=== PATIENT | female | born 1945 | race Caucasian/White ===

== ENCOUNTER 2021-06-23 19:36 | Emergency (ER) | payer MEDICARE, SELFPAY ==
--- NOTE | ~2021-06-23 | XR_ITS ---
EXAMINATION: XR CHEST CLINICAL INFORMATION: Altered mental status COMPARISON: None TECHNIQUE: Frontal view of the chest was obtained. FINDINGS: The cardiomediastinal silhouette is normal. The lung parenchyma is normal. No areas of consolidation. No pleural effusions. There is diffuse osteopenia. There is degenerative disease of the bilateral shoulders. XR/XR chest 1V IMPRESSION: No acute disease.
--- NOTE | ~2021-06-23 | CT_ITS ---
EXAMINATION: CT HEAD WITHOUT CONTRAST CLINICAL INFORMATION: Altered mental status COMPARISON: None TECHNIQUE: Contiguous axial imaging was performed from the skull base to vertex without intravenous administration of contrast. This CT examination was performed using dose optimization techniques as appropriate, variously including the following: *Automated exposure control *Adjustment of mA and/or kV according to patient size (this includes techniques or standardized protocols for targeted exams where dose is matched to indication/reason for exam; i.e. extremities or head) *Use of iterative reconstruction technique DLP: 624 mGy-cm FINDINGS: There is no evidence of acute intracranial hemorrhage or territorial infarction. No abnormal mass effect or midline shift is seen. Lou to white matter differentiation is well preserved. No extra-axial fluid collections are identified. The ventricles are normal in size. Dystrophic calcifications involving the thalamus and basal ganglia bilaterally, right greater than left. Patchy chronic microvascular white matter ischemic changes. The osseous structures and soft tissues are normal. The mastoid air cells and visualized portions of the paranasal sinuses are well aerated. CT/CT head/brain wo con IMPRESSION: No acute intracranial pathology.
[2021-06-23 19:43] VITALS: BP 110/53; BP 146/87; PULSE 79; PULSE 90; RESP 16; TEMP 36.6; O2SAT 96; BMI 23.3
--- NOTE | 2021-06-23 19:51 | PC.NURSE ---
pt is alert and at baseline confuse be can state her name. pt is clam and cooperative. No sign of distress at this time.
--- NOTE | 2021-06-23 19:58 | ED.AMS ---
HPI - Altered Mental Status General Chief Complaint: General Medical Stated Complaint: ? Time Seen by Provider: 06/23/21 19:50 Source: EMS and RN notes reviewed Mode of arrival: EMS Limitations: no limitations History of Present Illness HPI narrative: Patient 76 years old with history of dementia, TIA, hypertension came from half-way as a nurse noticed that patient is more confused than usual baseline no fever no nausea no vomiting no diarrhea no abdominal pain when patient arrived she was at her baseline does not know why she is here Related Data Allergies Allergy/AdvReac Type Severity Reaction Status Date / Time No Known Allergies Allergy Verified 06/23/21 20:07 Review of Systems Review of Systems: Yes Unobtainable due to mental status PMFSH Past Medical History Medical History Dementia Social History Social History Advance Directives: No Advance Directives Information Provided: No Physical Exam Vital Signs: Vital Signs: Last Vital Signs Temp 97.4 F 06/23/21 23:20 Pulse 80 06/23/21 23:20 Resp 16 06/23/21 23:20 BP 93/72 06/23/21 23:20 Pulse Ox 99 06/23/21 23:20 Body Mass Index 23.3 Appearance: Alert. Oriented X2. No acute distress. Eyes: PERRLA, No Nystagmus no pallor or icterus ENT: Pharynx normal. Oral Mucosa moist Neck: Normal inspection. Neck supple. CVS: Normal heart rate and rhythm. Pulses normal. Respiratory: No respiratory distress. Equal air entry bilateral, no wheezing/rales/rhonchi Abdomen: Soft and nontender. Bowel sounds are present, no mass palpable, no CVA tenderness Skin: Skin warm and dry. Normal skin color. Normal skin turgor. Extremities: No lower extremity edema. No calf tenderness Neuro: Oriented X 2. Moving all 4 extremities equally No sensory deficit.No cerebellar signs , cranial nerves II-XII intact MDM - Altered Mental Status MDM Narrative Medical decision making narrative: Patient with acute confusion per half-way staff in the ER patient was at baseline lab workup was also at baseline will do CT head just to rule out acute pathology CT scan head is negative for any acute pathology patient is at baseline having food in the ER will discharge patient N home Lab Data Attestation: I reviewed the patient's lab results. Result diagrams: 06/23/21 20:22 06/23/21 20:22 Labs: Lab Results 06/23/21 06/23/21 06/23/21 Range/Units 20:22 20:22 20:58 WBC 7.6 (4.8-10.8) X10*3/uL RBC 3.98 L (4.20-5.50) X10*6/uL Hgb 11.8 L (12.0-16.0) g/dl Hct 36.1 L (37-47) % MCV 90.7 (80-98) fL MCH 29.6 (27.0-33.0) pg MCHC 32.7 (31.0-35.0) g/dl RDW 13.3 (11.0-16.0) % Plt Count 254 (160-400) X10*3/uL MPV 8.9 L (9.4-12.3) fL Immature Gran % (Auto) 0.4 (0.0-0.4) % Neut % (Auto) 69.9 (45-73) % Lymph % (Auto) 17.6 L (20-40) % Perkins % (Auto) 7.5 (2-11) % Eos % (Auto) 3.9 (0-4) % Baso % (Auto) 0.7 (0-2) % Lymph # (Auto) 1.3 (1.2-4.9) X10*3/uL Perkins # (Auto) 0.6 (0.1-1.2) X10*3/uL Eos # (Auto) 0.3 (0.0-0.4) X10*3/uL Baso # (Auto) 0.1 (0.0-0.2) X10*3/uL Abs Immat Gran (auto) 0.03 (0.00-0.03) X10*3/uL Absolute Neuts (auto) 5.3 (2.0-8.3) X10*3/uL Absolute Nucleated RBC 0.000 (0.0-0.012) X10*3/uL Nucleated RBC % (auto) 0.0 (0.0-0.2) /100WBC Sodium 140 (135-145) mmol/L Potassium 3.8 (3.3-5.1) mmol/L Chloride 107 (96-108) mmol/L Carbon Dioxide 24 (22-29) mmol/L Anion Gap 13 (12-20) BUN 21 H (9-16) mg/dL Creatinine 0.74 (0.5-1.4) mg/dL Estim Creat Clear Calc 51.9 Estimated GFR > 60 Random Glucose 159 H (60-115) mg/dL Calcium 8.9 (8.4-10.2) mg/dL Total Bilirubin 0.2 (0.0-1.0) mg/dL AST 18 (5-31) U/L ALT 14 (0-31) U/L Alkaline Phosphatase 148 H (39-117) U/L Total Protein 5.5 L (6.5-8.0) g/dL Albumin 3.6 (3.5-5.0) g/dL Urine Color YELLOW Urine Appearance CLEAR Urine pH 6.0 (5.0-8.0) Ur Specific [place] 1.020 (1.005-1.025) Urine Protein NEG (NEG-TRACE) MG/DL Urine Glucose (UA) NEG (NEG) MG/DL Urine Ketones NEG (NEG) MG/DL Urine Blood NEG (NEG) Urine Nitrite NEG (NEG) Ur Leukocyte Esterase NEG (NEG) Imaging Data CT scan - head: Attestation: I personally reviewed and interpreted this imaging study as follows: Radiologist's impression: [address] [place] [address] CT Scan Report Signed Patient: Jessica Jimenez MR#: [id number] : 1945 Acct:[id number] Age/Sex: 76 / F ADM Date: 06/23/21 Loc: .ED Attending Dr: Ordering Physician: Keshawn Ramsey MD Date of Service: 06/23/21 Procedure(s): CT head/brain wo con Accession Number(s): [id number] cc: Keshawn Ramsey MD~ EXAMINATION: CT HEAD WITHOUT CONTRAST CLINICAL INFORMATION: Altered mental status? COMPARISON: None TECHNIQUE: Contiguous axial imaging was performed from the skull base to vertex without intravenous administration of contrast. This CT examination was performed using dose optimization techniques as appropriate, variously including the following: *Automated exposure control *Adjustment of mA and/or kV according to patient size (this includes techniques or standardized protocols for targeted exams where dose is matched to indication/reason for exam; i.e. extremities or head) *Use of iterative reconstruction technique DLP: 624 mGy-cm FINDINGS: There is no evidence of acute intracranial hemorrhage or territorial infarction. No abnormal mass effect or midline shift is seen. Lou to white matter differentiation is well preserved. No extra-axial fluid collections are identified. The ventricles are normal in size. Dystrophic calcifications involving the thalamus and basal ganglia bilaterally, right greater than left. Patchy chronic microvascular white matter ischemic changes. The osseous structures and soft tissues are normal. The mastoid air cells and visualized portions of the paranasal sinuses are well aerated. ? CT/CT head/brain wo con IMPRESSION: No acute intracranial pathology. Discharge Plan Discharge Clinical Impression: Dementia Qualifiers: Dementia type: Alzheimer's Alzheimer's disease onset: late-onset Dementia behavioral disturbance: with behavioral disturbance Qualified Code(s): G30.1 - Alzheimer's disease with late onset Patient Disposition: Xfer SNF Transfer Details: Back to half-way Instructions: Dementia (ED) Additional Instructions: Continue patient's medications , CT scan head and labs are negative , no acute pathology follow-up with PCP
--- NOTE | 2021-06-23 20:04 | PC.NURSE ---
pt is alert and eliane to name. pt has dementia. Call Kirsten of [facility] to determine reason for sending resident here. Spoke to nurse Nathaly who stated DON said send her out due to mental status change but nurse was unable to report what those changes were this evening. Provider in to assess pt.
--- NOTE | 2021-06-23 20:09 | PC.NURSE ---
placed fall risk socks and wrist band
[2021-06-23 20:26] LABS: MANUAL DIFF FLAG NO
[2021-06-23 20:28] LABS: Basophils Absolute Auto 0.1 X10*3/uL (0.0-0.2); Basophils Percent Auto 0.7 % (0-2); Eosinophils Absolute Auto 0.3 X10*3/uL (0.0-0.4); Eosinophils Percent Auto 3.9 % (0-4); Hematocrit 36.1 % (37-47); Hemoglobin 11.8 g/dl (12.0-16.0); Imm Gran Abs Auto 0.03 X10*3/uL (0.00-0.03); Imm Gran Pct Auto 0.4 % (0.0-0.4); Lymphocytes Absolute Auto 1.3 X10*3/uL (1.2-4.9); Lymphocytes Percent Auto 17.6 % (20-40); Mean Corpuscular HGB Conc 32.7 g/dl (31.0-35.0); Mean Corpuscular Hemoglobin 29.6 pg (27.0-33.0); Mean Corpuscular Volume 90.7 fL (80-98); Mean Platelet Volume 8.9 fL (9.4-12.3); Monocytes Absolute Auto 0.6 X10*3/uL (0.1-1.2); Monocytes Percent Auto 7.5 % (2-11); Neutrophils Absolute Auto 5.3 X10*3/uL (2.0-8.3); Neutrophils Percent Auto 69.9 % (45-73); Platelet Count 254 X10*3/uL (160-400); Red Blood Count 3.98 X10*6/uL (4.20-5.50); Red Cell Distribution Width 13.3 % (11.0-16.0); White Blood Count 7.6 X10*3/uL (4.8-10.8)
[2021-06-23 20:52] LABS: Alanine Aminotransferase 14 U/L (0-31); Albumin Level 3.6 g/dL (3.5-5.0); Alkaline Phosphatase 148 U/L (39-117); Anion Gap 13 (12-20); Aspartate Amino Transferase 18 U/L (5-31); Bilirubin Total 0.2 mg/dL (0.0-1.0); Blood Urea Nitrogen 21 mg/dL (9-16); Calcium 8.9 mg/dL (8.4-10.2); Carbon Dioxide 24 mmol/L (22-29); Chloride 107 mmol/L (96-108); Creatinine Clr Calc Pharmacy 51.9; Estimated Glomerular Filt Rate > 60; Glucose Random 159 mg/dL (60-115); Potassium 3.8 mmol/L (3.3-5.1); Sodium 140 mmol/L (135-145); Total Protein 5.5 g/dL (6.5-8.0)
[2021-06-23 21:10] LABS: Glucose Urine UA NEG (NEG); Leukocyte Esterase Urine NEG (NEG); Nitrite Urine NEG (NEG); Urine Blood NEG (NEG); Urine Ketones NEG (NEG); Urine Protein NEG (NEG-TRACE)
[2021-06-23 21:13] LABS: Appearance Urine CLEAR; Color Urine YELLOW
--- NOTE | 2021-06-23 23:04 | PC.NURSE ---
Patient awake and moving around in bed. Explained plan for head CT to patient and in agreement.
[2021-06-23 23:20] VITALS: BP 93/72; PULSE 80; RESP 16; TEMP 36.3; O2SAT 99
--- NOTE | 2021-06-23 23:21 | PC.NURSE ---
PATIENT HAD TUNA FISH SANDWICH ,PUDDING AND CRANBERRY JUICE.
--- NOTE | 2021-06-24 00:32 | PC.NURSE ---
Nurse to nurse given to Nathaly at [facility]
== END 2021-06-24 00:33 | disposition skilled nursing facility (03) ==
PROVIDERS: Emergency Provider Internal Medicine; PCP Internal Medicine
DX: G30.1 Alzheimer's disease with late onset (principal)
CPT/HCPCS: 36415; 70450; 71045; 80053; 81003; 85025; 99284

== ENCOUNTER 2021-07-01 18:30 | Emergency (ER) | payer MEDICARE, SELFPAY ==
--- NOTE | ~2021-07-01 | XR_ITS ---
EXAMINATION: XR HAND, RIGHT CLINICAL INFORMATION: Fall. Pain. COMPARISON: None TECHNIQUE: Oblique views of the right hand. FINDINGS: Evaluation severely limited secondary to patient positioning. Possible nondisplaced fracture at the base of the 2nd proximal phalanx. Anterior subluxation at the metacarpophalangeal joints. Diffuse joint space narrowing with marginal osteophytes. No abnormal soft tissue calcification. XR/XR hand RT 2V IMPRESSION: Severely limited evaluation secondary to patient positioning. Possible nondisplaced fracture at the base of the 2nd proximal phalanx. Chronic-appearing anterior subluxation at the metacarpophalangeal joints.
--- NOTE | ~2021-07-01 | CT_ITS ---
EXAMINATION: CT HEAD WITHOUT CONTRAST CT CERVICAL SPINE WITHOUT CONTRAST CLINICAL INFORMATION: Fall. Hit head. COMPARISON: Head CT dated 06/23/2021 TECHNIQUE: Contiguous axial imaging was performed from the skull base to vertex without intravenous administration of contrast. Contiguous axial CT images of the cervical spine were obtained without contrast. Sagittal and coronal reformats were provided and reviewed. This CT examination was performed using dose optimization techniques as appropriate, variously including the following: *Automated exposure control *Adjustment of mA and/or kV according to patient size (this includes techniques or standardized protocols for targeted exams where dose is matched to indication/reason for exam; i.e. extremities or head) *Use of iterative reconstruction technique DLP: 1546 mGy-cm FINDINGS: HEAD: There is no evidence of acute intracranial hemorrhage or territorial infarction. No abnormal mass effect or midline shift is seen. Lou to white matter differentiation is well preserved. No extra-axial fluid collections are identified. The ventricles and sulci are mildly prominent, consistent with cerebral atrophy and unchanged. Basal ganglia calcifications are redemonstrated on the right. Hypoattenuation of the periventricular white matter, consistent with chronic microvascular ischemic disease and unchanged. The osseous structures and soft tissues are normal. The mastoid air cells and visualized portions of the paranasal sinuses are well aerated. CERVICAL SPINE: Straightening of the normal cervical lordosis, which may be positional or related to muscular spasm. Minimal grade 1 anterolisthesis of C3 on C4. No acute fracture. No loss of vertebral body height. Multilevel loss of intervertebral disc height with endplate degenerative changes and endplate osteophytes, most prominent at C4-C5. Prominent multilevel bilateral facet arthropathy. No lytic or blastic osseous lesion. Unremarkable prevertebral soft tissues. No abnormal soft tissue mass or fluid collection. Thyroid within normal limits. Visualized lung apices are clear. Prominent multilevel bilateral neural foraminal stenosis. CT/CT cervical spine wo con IMPRESSION: HEAD: No acute intracranial hemorrhage or mass effect. Generalized atrophy and chronic microvascular ischemic disease, unchanged. CERVICAL SPINE: No acute fracture or subluxation. Straightening of the normal cervical lordosis, which may be positional or related to muscular spasm. Minimal grade 1 anterolisthesis of C3 on C4, likely chronic. Multilevel degenerative disc disease and bilateral facet arthropathy causing multilevel bilateral neural foraminal stenosis.
[2021-07-01 18:53] VITALS: BP 122/78; PULSE 82; O2SAT 96
[2021-07-01 19:00] VITALS: BP 127/70; PULSE 87; RESP 17; TEMP 36.6; O2SAT 99
--- NOTE | 2021-07-01 19:03 | ED_ITS ---
HPI - Fall General Chief Complaint: Fall Stated Complaint: FALL,LOC Time Seen by Provider: 07/01/21 18:57 Source: patient and EMS Mode of arrival: EMS Limitations: altered mental status History of Present Illness HPI Narrative: 76-year-old female from a senior living with a past medical history of dementia here after a witnessed fall by staff. Patient is a 1-1 with staff at [facility]. She was witnessed to trip falling forward hitting her head on the ground. There was no reports of loss of consciousness. Per staff the patient is at her mental status baseline. She does have a small abrasion to the left forehead as well as some swelling and tenderness the right hand. No AC therapy Related Data Allergies Allergy/AdvReac Type Severity Reaction Status Date / Time No Known Allergies Allergy Verified 06/23/21 20:07 Review of Systems Review of Systems: Yes Unobtainable due to mental status Neurologic: Reports confusion Psychiatric: Psychiatric: Reports confusion [facility] Past Medical History Attestation statement: The following information was validated with the patient. Source: old records reviewed and nursing notes reviewed Medical History Dementia Social History Social History Advance Directives: No Advance Directives Information Provided: No Physical Exam Vital Signs: Vital Signs: Last Vital Signs Temp 98 F 07/01/21 19:00 Pulse 87 07/01/21 19:00 Resp 17 07/01/21 19:00 BP 127/70 07/01/21 19:00 Pulse Ox 99 07/01/21 19:00 Const: General: healthy appearing, alert and confusion Orientation/consciousness: confusion Limitations: altered mental status HENMT: Head: Yes normal to inspection Ears: hearing grossly normal bilaterally and TM's normal bilaterally General nose exam: Normal external nose present Face and sinus: Yes normal facial exam Mouth: Normal oral and palatal mucosa present Throat: Yes posterior oropharynx normal Eyes: General: appearance normal, both eyes and all related structures Pupils: Equal, round and reactive pupils present Neck: Other: Cervical collar in place Neck: Yes normal visual inspection Chest: Chest palpation & inspection: normal inspection of the chest Resp: Effort & Inspection: normal respiratory effort Auscultation: clear to auscultation bilaterally Cardio: Rate: regular rate Rhythm: regular rhythm Peripheral pulses: Peripheral pulses 2+ throughout GI: Inspection: Yes normal to inspection Palpation (GI): Soft to palpation and nontender Auscultation: normal bowel sounds Back/Spine/Pelvis: Thoracic/Lumbar Spine: thoracic and lumbar spine normal to inspection Skin: General skin exam: no rashes or lesions noted Neuro: General: moves all extremities, confusion and Unable to assess gait Cranial nerves: Yes Equal, round and reactive pupils present Gait exam (Neuro): Unable to assess gait Extrem: Other: Ecchymosis, swelling, tenderness to the distal dorsal right hand. Hand is contracted at baseline per staff General: Yes normal to inspection Course Course Course Narrative: 76-year-old female from a senior living with a past medical history of dementia here after a witnessed fall with a head strike. Per staff patient is at her baseline. No AC therapy. She does have a small abrasion to the left forehead and some swelling and bruising to the dorsal aspect of the right hand. Will check CT head/neck, xr-ay right hand 2030-CT head and neck negative. Hand x-ray is concerning for possible nondi splaced fracture of the right proximal phalanx. The hand is contracted at baseline. It is not conducive for splinting. Patient will not tolerate Bart wrapping due to underlying dementia. She does not really use the hand. Will recommend supportive care. MDM - Fall Medical Records Attestation: I reviewed the patient's medical records. Lab Data Attestation: I reviewed the patient's lab results. Imaging Data hand xray: Attestation: I personally reviewed and interpreted this imaging study as follows: Radiologist's impression: FINDINGS: Evaluation severely limited secondary to patient positioning. Possible nondisplaced fracture at the base of the 2nd proximal phalanx. Anterior subluxation at the metacarpophalangeal joints. Diffuse joint space narrowing with marginal osteophytes. No abnormal soft tissue calcification.? XR/XR hand RT 2V IMPRESSION: Severely limited evaluation secondary to patient positioning. ? Possible nondisplaced fracture at the base of the 2nd proximal phalanx. ? Chronic-appearing anterior subluxation at the metacarpophalangeal joints. Ct head/cervical spine: Attestation: I personally reviewed and interpreted this imaging study as follows: Radiologist's impression: [id number] [place] [address] CT Scan Report Signed Patient: Jessica Jimenez MR#: [id number] : 1945 Acct:[id number] Age/Sex: 76 / F ADM Date: 07/01/21 Loc: HO.ED Attending Dr: Ordering Physician: Nany Cerda NP Date of Service: 07/01/21 Procedure(s): CT cervical spine wo [facility] Accession Number(s): [id number] cc: Nany Cerda NP~ EXAMINATION: CT HEAD WITHOUT CONTRAST CT CERVICAL SPINE WITHOUT CONTRAST CLINICAL INFORMATION: Fall. Hit head.? COMPARISON: Head CT dated 06/23/2021 TECHNIQUE: Contiguous axial imaging was performed from the skull base to vertex without intravenous administration of contrast. Contiguous axial CT images of the cervical spine were obtained without contrast. Sagittal and coronal reformats were provided and reviewed. This CT examination was performed using dose optimization techniques as appropriate, variously including the following: *Automated exposure control *Adjustment of mA and/or kV according to patient size (this includes techniques or standardized protocols for targeted exams where dose is matched to indication/reason for exam; i.e. extremities or head) *Use of iterative reconstruction technique DLP: 1546 mGy-cm FINDINGS: HEAD: There is no evidence of acute intracranial hemorrhage or territorial infarction. No abnormal mass effect or midline shift is seen. Lou to white matter differentiation is well preserved. No extra-axial fluid collections are identified. The ventricles and sulci are mildly prominent, consistent with cerebral atrophy and unchanged. Basal ganglia calcifications are redemonstrated on the right. Hypoattenuation of the periventricular white matter, consistent with chronic microvascular ischemic disease and unchanged. The osseous structures and soft tissues are normal. The mastoid air cells and visualized portions of the paranasal sinuses are well aerated. CERVICAL SPINE: Straightening of the normal cervical lordosis, which may be positional or related to muscular spasm. Minimal grade 1 anterolisthesis of C3 on C4. No acute fracture. No loss of vertebral body height. Multilevel loss of intervertebral disc height with endplate degenerative changes and endplate osteophytes, most prominent at C4-C5. Prominent multilevel bilateral facet arthropathy. No lytic or blastic osseous lesion. Unremarkable prevertebral soft tissues. No abnormal soft tissue mass or fluid collection. Thyroid within normal limits. Visualized lung apices are clear. Prominent multilevel bilateral neural foraminal stenosis. ? CT/CT cervical spine wo con IMPRESSION: HEAD: No acute intracranial hemorrhage or mass effect. Generalized atrophy and chronic microvascular ischemic disease, unchanged. ? CERVICAL SPINE: No acute fracture or subluxation. Straightening of the normal cervical lordosis, which may be positional or related to muscular spasm. Minimal grade 1 anterolisthesis of C3 on C4, likely chronic. Multilevel degenerative disc disease and bilateral facet arthropathy causing multilevel bilateral neural foraminal stenosis. Discharge Plan Discharge Clinical Impression: Contusion of head, Contusion of hand Patient Disposition: Home, Self-Care Instructions: Facial Contusion (ED) Additional Instructions: CT scan shows no abnormality X-ray of right hand show possible fracture of the 2nd phalanx which can be treated with ice, elevation. Tylenol for pain Referrals: Tova Perez MD [Primary Care Provider] - 2 days Interventions: ED Discharge Assessment Last Done: 07/01/21 20:29 Discharge Date/Time: 07/01/21 20:34
[2021-07-01] MEDS: Acetaminophen 325 MG TABLET 650 MG PO (20:37)
== END 2021-07-01 20:34 | disposition home or self-care (01) ==
PROVIDERS: Emergency Provider Emergency Medicine; PCP Internal Medicine
DX: S00.83XA Contusion of other part of head, initial encounter (principal); S60.221A Contusion of right hand, initial encounter; S00.81XA Abrasion of other part of head, initial encounter; W01.0XXA Fall on same level from slipping, tripping and stumbling without subsequent striking against object, initial encounter; F03.90 Unspecified dementia, unspecified severity, without behavioral disturbance, psychotic disturbance, mood disturbance, and anxiety; Y93.9 Activity, unspecified; Y92.129 Unspecified place in nursing home as the place of occurrence of the external cause; Y99.9 Unspecified external cause status
CPT/HCPCS: 70450; 72125; 73120; 99283; 99284